=== PATIENT | male | born 1960 | race Caucasian/White ===

== ENCOUNTER 2024-12-06 17:19 | Inpatient (IN) ==
--- NOTE | 2024-12-06 18:22 | Emergency Department Note ---
Impression & Plan Alcohol withdrawal syndrome ED Provider Note NAME: JULISSA TORRES AGE: 64 SEX: M : 1960 ARRIVES VIA: Walk-In INFORMANT: Patient, ED PROVIDER(S): Guerda Lorenzo MD CHIEF COMPLAINT: Detox HPI: This is a 64-year-old male presenting for alcohol withdrawal. Patient states that he had been sober for about 11 years and then restarted drinking over the holidays due to some increasing stress. He notes that over these past 3+ months he has drank about 8 ounces of vodka per day with frequent days where he drinks much more. He notes he finishes a 1.75 L bottle of vodka every 3 to 4 days. He notes that this morning went to a doctor's appointment and were to help with detox. After having not drank for about 3+ hours being having shakes of his hands and increasing anxiety. He did have a seizure at 11 years ago when he went through detox. He was advised to drink alcohol by his physician and present to the ER. ROS: See above HPI for pertinent positives & negatives. A total of 10 systems reviewed and were otherwise negative. PAST MEDICAL HISTORY: See Below PAST SURGICAL HISTORY: See Below FAMILY HISTORY: See Below SOCIAL HISTORY: See Below HOME MEDICATIONS: See Below ALLERGIES: See Below VITALS: See Below PHYSICAL EXAMINATION: General: resting comfortably in no acute distress Head: Normocephalic and atraumatic Eyes: Normal inspection, extraocular muscles intact Ear, nose, throat: Normal external exam Neck: Normal range of motion Respiratory: speaking in full sentences, symmetric chest rise, no respiratory distress Cardiovascular: Regular rate/rhythm Extremities: moves all extremities Neuro: The patient awake and alert, appropriately conversive, symmetric faces, no focal deficits MEDICAL DECISION MAKING: This is a 64-year-old male presenting for alcohol withdrawal. Patient has been she drank immediately prior to arrival at the advice of his outpatient provider. He notes he gets handshaking when he does not drink. He is trying for about 3+ months every day. -No cytosis or anemia. Patient's potassium 3.4. Otherwise alcohol of 28.7. Slight transaminitis likely related to alcohol -Will give Valium 10 mg IV at this time -Will admit for inpatient detox due to patient's previous history and shaking when not drinking Differential diagnosis: Alcohol intoxication, liver cirrhosis, failure alcohol withdrawal Independent History obtained from: [facility] interpreted by me: ECG: None Cardiac Monitoring: An order was placed for continuous cardiac monitoring. The monitor shows a rate of 94 sinus rhythm. Past Med/Surg History Problem List (Updated 12/06/24 @ 19:56 by Guerda Lorenzo MD) Alcohol withdrawal syndrome (Acute) Social History Smoking Status: Heavy tobacco smoker Tobacco Type: Smokeless Tobacco (Dip or Chew) Hx Substance Use: Yes Feels Safe at Home: Yes Allergies Allergies Allergy/AdvReac Type Severity Reaction Status Date / Time Penicillins Allergy Severe MOUTH SORES Verified 12/06/24 18:00 Home Meds Home Medications Medication Instructions Recorded Confirmed acetaminophen 500 mg tablet 1,000 mg PO Q6H PRN Pain 12/06/24 12/06/24 fluoxetine 20 mg capsule 20 mg PO HS 12/06/24 12/06/24 omeprazole 20 mg tablet,delayed 20 mg PO QAM 12/06/24 12/06/24 release Results & Data (ED) Vital Signs Vital Signs - 24 hr 12/06/24 17:19 12/06/24 17:29 12/06/24 17:50 Pulse Rate 104 H Pulse Rate from SpO2 Sensor Respiratory Rate 18 Blood Pressure 158/106 H 186/111 H Blood Pressure Mean 123 121 Pulse Oximetry 95 97 Oxygen Delivery Method Room Air Room Air Sepsis Recent Fever Within 48 Hours No Sepsis New/Unexplained Change in Mental Status No Sepsis Action Taken by Nursing No Action Required 12/06/24 18:00 12/06/24 18:00 12/06/24 18:03 Pulse Rate 90 94 H Pulse Rate from SpO2 Sensor 89 Respiratory Rate 17 Blood Pressure 170/106 H Blood Pressure Mean 127 Pulse Oximetry 96 Oxygen Delivery Method Sepsis Recent Fever Within 48 Hours Sepsis New/Unexplained Change in Mental Status Sepsis Action Taken by Nursing Laboratory Data 12/06/24 18:00 12/06/24 18:00 Lab Results 12/06/24 Range/Units 18:00 WBC 5.33 (4.8-10.8) K/ul RBC 4.51 L (4.70-6.10) M/uL Hgb 14.8 (14.0-18.0) g/dl Hct 41.6 L (42.0-52.0) % MCV 92.2 (80.0-100.0) fL MCH 32.8 (25.0-34.0) pg MCHC 35.6 (32.0-36.0) g/dL RDW Std Deviation 46.4 H (36.4-46.3) fL RDW Coeff of Dwight 13.6 (11.5-14.5) % Plt Count 179 (130-400) K/uL MPV 8.9 L (9.4-12.4) fL Immature Gran % (Auto) 0.6 % Neut % (Auto) 67.4 % Lymph % (Auto) 18.4 % [place] % (Auto) 12.6 % Eos % (Auto) 0.6 % Baso % (Auto) 0.4 % Neut # (Auto) 3.60 (1.40-6.50) K/uL Lymph # (Auto) 0.98 L (1.20-3.40) K/uL [place] # (Auto) 0.67 H (0.11-0.59) K/uL Eos # (Auto) 0.03 (0.00-0.50) K/uL Baso # (Auto) 0.02 (0.00-0.20) K/uL Immature Gran # (Auto) 0.03 (0.01-0.20) K/uL Sodium 139 (136-145) mmol/L Potassium 3.4 L (3.5-5.1) mmol/L Chloride 104 (98-107) mmol/L Carbon Dioxide 25 (21-32) mmol/L Anion Gap 10 (3-11) BUN 13 (6-23) mg/dl Creatinine 0.78 (0.6-1.4) mg/dl Est Cr Clr Drug Dosing 100.3 ml/min eGFR 100.83 BUN/Creatinine Ratio 16.7 (10-20) Glucose 98 (70-99(Fasting)) mg/dl Calcium 9.2 (8.6-10.3) mg/dl Magnesium 1.9 (1.7-2.4) mg/dl Total Bilirubin 0.5 (0.2-1.0) mg/dl Direct Bilirubin 0.1 (0-0.2) mg/dl AST 56 H (13-39) U/L ALT 85 H (7-52) U/L Alkaline Phosphatase 53 (34-104) U/L Total Protein 7.1 (6.0-8.3) gm/dl Albumin 4.5 (3.4-5.0) gm/dl Lipase 12 (11-82) U/L Ethyl Alcohol mg/dL 28.7 H (<10.0) mg/dl Administered Medications Discontinued Medications Clonidine HCl (Clonidine Hcl 0.1 Mg Tab) 0.1 mg PO NOW ONE Stop: 12/06/24 19:27 Last Admin: 12/06/24 19:47 Dose: 0.1 mg Documented By: ZULAY Diazepam (Diazepam 5 Mg/Ml 10ml Vial) 10 mg IV NOW STA Stop: 12/06/24 18:57 Last Admin: 12/06/24 19:04 Dose: 10 mg Documented By: ZULAY Ondansetron HCl (Ondansetron Inj 2 Mg/Ml 2 Ml Vial) 4 mg IV NOW STA Stop: 12/06/24 19:11 Last Admin: 12/06/24 19:25 Dose: 4 mg Documented By: ZULAY Potassium Chloride (Potassium Chloride Crtab 20 Meq Tabcr) 40 meq PO NOW STA Stop: 12/06/24 19:34 Last Admin: 12/06/24 19:46 Dose: 40 meq Documented By: ZULAY Discharge Plan Visit Data Chief Complaint: Detox Request Stated Complaint: ALCOHOL DETOX ED Provider: Guerda Lorenzo Discharge Problem: Alcohol withdrawal syndrome Forms Stand Alone Forms: My [facility], Suicide Prevention Resources Prescriptions Prescriptions: No Action acetaminophen 500 mg Tablet 1,000 mg PO Q6H PRN (Reason: Pain) fluoxetine 20 mg capsule 20 mg PO HS omeprazole 20 mg Tablet,Delayed Release (Dr/Ec) 20 mg PO QAM Referrals Referrals: PCP,NO [Physician] -
[2024-12-06 18:38] LABS: Albumin Level 4.5 gm/dl (3.4-5.0); BUN Creatinine Ratio 16.7 (10-20); Bilirubin Direct 0.1 mg/dl (0-0.2); Bilirubin,Total 0.5 mg/dl (0.2-1.0); Calcium 9.2 mg/dl (8.6-10.3); Creatinine Clr Calc Pharmacy 100.3 ml/min; Magnesium 1.9 mg/dl (1.7-2.4); Potassium 3.4 mmol/L (3.5-5.1); Total Protein 7.1 gm/dl (6.0-8.3)
[2024-12-06] MEDS: diazePAM 5 MG/ML 10ML VIAL IV STA (19:04)
[2024-12-06] MEDS: ONDANSETRON INJ 2 MG/ML 2 ML VIAL IV STA (19:25)
[2024-12-06 19:32] LABS: Basophils # (auto) 0.02 K/uL (0.00-0.20); Basophils % (auto) 0.4 %; Eosinophils # (auto) 0.03 K/uL (0.00-0.50); Eosinophils % (auto) 0.6 %; Hematocrit (blood only) 41.6 % (42.0-52.0); Hemoglobin 14.8 g/dl (14.0-18.0); Immature Granulocytes # (auto) 0.03 K/uL (0.01-0.20); Immature Granulocytes % (auto) 0.6 %; Lymphocytes # (auto) 0.98 K/uL (1.20-3.40); Lymphocytes % (auto) 18.4 %; Mean Corpuscular Hemoglobin 32.8 pg (25.0-34.0); Mean Corpuscular Hgb Conc 35.6 g/dL (32.0-36.0); Mean Corpuscular Volume 92.2 fL (80.0-100.0); Mean Platelet Volume 8.9 fL (9.4-12.4); Monocytes # (auto) 0.67 K/uL (0.11-0.59); Monocytes % (auto) 12.6 %; Neutrophils % (auto) 67.4 %; Platelet Count 179 K/uL (130-400); RDW Coefficient of Variation 13.6 % (11.5-14.5); RDW Standard Deviation 46.4 fL (36.4-46.3); Red Blood Count 4.51 M/uL (4.70-6.10); White Blood Count 5.33 K/ul (4.8-10.8)
[2024-12-06] MEDS: POTASSIUM CHLORIDE CRTAB 20 MEQ TABCR PO STA (19:46)
[2024-12-06] MEDS: cloNIDine HCL 0.1 MG TAB PO ONE (19:47)
--- NOTE | 2024-12-06 19:58 | History & Physical Report ---
Date of Service December 06, 2024 Assessment & Plan (1) Alcohol withdrawal syndrome: (2) HTN (hypertension): (3) Elevated LFTs: (4) Anxiety: Plan: HPI, ROS, FH, SH, PE completed by Antionette Mcbride PA-C Assessment and plan per Dr Goldstein. See addendum History of Present Illness Chief Complaint: alcohol detox Primary Care Provider: Donato Canales MD Patient is 64-year-old male with PMH alcohol abuse, anxiety, presented to ER with c/o alcohol withdrawal and wanting alcohol detox. States history alcoholism. Was abstinent for 11 years and couple months ago started drinking again. History of withdrawal seizure twice in past. Has been drinking 8 ounces vodka daily. Patient states told his BP's have been elevated in the past but states he hasn't follow with PCP for years. He presented to PCP as new patient On 11/29/24 for alcohol use disorder, anxiety. At that time patient preferred attempting outpatient treatment. Librium taper prescribed for alcohol withdrawal, Prozac 20 mg daily prescribed. Last took Librium on 12/03/24. He is drinking approximately 3 ounces daily now. Last drank at around 15:00 today. He states is still feeling shaky and anxious and then will sip on more Vodka. Also having nausea. Patient was referred to [facility] for therapy. He states he was able to get in and was seen there today. Denies hallucinations. He is very concerned about having another withdrawal seizure and presents today in attempts at medical withdrawal. At this time he states is not interested in inpatient rehab. Some intermittent YBARRA's. Denies fever/chills, diaphoresis, vomiting, diarrhea, dizziness, syncope, CP, SOB, cough, rhinorrhea, abdominal pain, extremity weakness, extremity edema, rashes, urinary symptoms. In ER today ETOH: 28. Allergies Allergy/AdvReac Type Severity Reaction Status Date / Time Penicillins Allergy Severe MOUTH SORES Verified 12/06/24 18:00 Home Medications Medication Instructions Recorded Confirmed Type acetaminophen 500 mg tablet 1,000 mg PO Q6H PRN Pain 12/06/24 12/06/24 History fluoxetine 20 mg capsule 20 mg PO HS 12/06/24 12/06/24 History omeprazole 20 mg tablet,delayed 20 mg PO QAM 12/06/24 12/06/24 History release Past Med/Surg History Problem List (Updated 12/06/24 @ 20:54 by Antionette Mcbride PA-C) Elevated LFTs Anxiety HTN (hypertension) Alcohol withdrawal syndrome (Acute) Surgical History No pertinent past surgical history Family History Other FH: alcoholism Social History Smoking Status: Never smoker Tobacco Type: Smokeless Tobacco (Dip or Chew) Do You Dip or Chew Tobacco: Yes; Hx Alcohol Use: Yes Alcohol type: hard liquor Hx Substance Use: No Preferred Language: Dominican Communication Ability: Effective Beauty Artist Required: No Beliefs That Will Affect Care: None Current Living Situation: Alone Feels Safe at Home: Yes Assistive Devices: None Review of Systems Review of Systems: All systems reviewed & are unremarkable except as noted in HPI & below Physical Exam Physical Exam: General: +mildly anxious appearing, WDWN Head: normocephalic, atraumatic Eyes: conjunctiva non-injected, anicteric ENT: normal inspection external ears, nose, mucous membranes moist Neck: supple, trachea midline Lungs: clear, no respiratory distress, no wheezing/rhonchi/rales CV: RRR, no murmur, no pretibial edema Abd: normal BS, soft, non-tender Ext: no cyanosis, no calf tenderness Neuro: A&O x 3, +tremors hands bilaterally, otherwise no focal deficits noted, normal affect Skin: warm, dry Results & Data Results & Data Vital Signs (Past 12 Hours) Vital Signs Pulse Resp BP Pulse Ox O2 Del Method 12/06/24 18:03 94 H 12/06/24 18:00 170/106 H 12/06/24 18:00 90 17 96 12/06/24 17:50 186/111 H 12/06/24 17:29 104 H 18 158/106 H 97 Room Air 12/06/24 17:19 95 Room Air Laboratory Results Short CBC 12/06/24 Range/Units 18:00 WBC 5.33 (4.8-10.8) K/ul Hgb 14.8 (14.0-18.0) g/dl Hct 41.6 L (42.0-52.0) % Plt Count 179 (130-400) K/uL BMP 12/06/24 18:00 Sodium 139 Potassium 3.4 L Chloride 104 Carbon Dioxide 25 BUN 13 Creatinine 0.78 Glucose 98 Calcium 9.2 Liver Function 12/06/24 Range/Units 18:00 Total Bilirubin 0.5 (0.2-1.0) mg/dl Direct Bilirubin 0.1 (0-0.2) mg/dl AST 56 H (13-39) U/L ALT 85 H (7-52) U/L Alkaline Phosphatase 53 (34-104) U/L Albumin 4.5 (3.4-5.0) gm/dl Supervising Physician Co-Signing Physician Notes IM ATTENDING : Patient seen and examined. History obtained from patient and records. Concur with salient points upon review of preceding documentation by Ms. Antionette Mcbride PA-C. I take responsibility for plan of care below. FINAL ASSESSMENT AND PLAN as follows : Alcohol withdrawal History seizure disorder off medications as per patient preference Hypertensive urgency secondary to illness Alcoholic hepatitis, likely good prognosis on Maddrey's DF score given normal coags Anxiety disorder Ongoing tobacco abuse Admit to PCU KATY S, DT precautions Clonidine as needed SBP greater than 150 Nicotine patch DVT prophylaxis Lovenox subcu Full code I spent a total of 35 minutes coordinating, documenting, and providing care for this patientexcludingtime spent by another provider/QHP.
[2024-12-06 20:13] LABS: Prothrombin Time 10.5 Seconds (9.0-12.0)
[2024-12-06] MEDS: THIAMINE HCL 100 MG in SYRINGE 9 ML IV STA (20:13)
[2024-12-06] MEDS ORDERED: Ativan IV Alcohol Withdrawal--Active Protocol IV PRN (20:27)
[2024-12-06] MEDS ORDERED: chlordiazePOXIDE ALCOHOL WITHDRAWL 25MG PO STA (20:27)
[2024-12-06] MEDS ORDERED: LORazepam 2 MG/1 ML VIAL IV PRN ×3 (20:27→20:29)
[2024-12-06] MEDS ORDERED: PROMETHAZINE 6.25 MG/50.25 ML BAG IV PRN (20:29)
[2024-12-06] MEDS ORDERED: oxyCODONE HCL IR 5 MG TAB (IMMEDIATE RELEASE) PO PRN (20:29)
[2024-12-06] MEDS: OPTIRAY 320 100ml IV ONE (21:26)
[2024-12-06] MEDS: NICOTINE 7 MG/24 HR TDSY TD SCH (22:52)
[2024-12-06] MEDS: FLUoxetine HCL 20 MG CAP PO SCH (22:54)
--- NOTE | 2024-12-06 23:34 | CT Scan Report ---
Exam(s): CT ABDOMEN + PELVIS With Contrast IV Amt: 90 ml optiray 320 EXAM: CT Abdomen and Pelvis With Intravenous Contrast CLINICAL HISTORY: Reason for exam: abd pain. TECHNIQUE: Axial computed tomography images of the abdomen and pelvis with intravenous contrast. CTDI is 23.29 mGy and DLP is 1183.19 mGy-cm. Automated exposure control was utilized for the study. A dose lowering technique was utilized adhering to the principles of ALARA. CONTRAST: Patient received 90 ml optiray 320 of IV contrast COMPARISON: No relevant prior studies available. FINDINGS: Lung bases: No consolidation. The heart contains coronary artery calcifications. ABDOMEN: Liver: The liver is enlarged and of diffuse decreased attenuation.. Gallbladder and bile ducts: No calcified stones. No ductal dilation. Pancreas: No mass. No ductal dilation. Spleen: No splenomegaly. Adrenals: No mass. Kidneys and ureters: No solid mass. No hydronephrosis. Stomach and bowel: The stomach is relatively decompressed. There is air and stool noted in the colon. There are diverticula present on the colon. No significant inflammatory changes are seen. PELVIS: Appendix: Unremarkable CT scan appearance noted the appendix.. Bladder: No calculi are noted within the bladder.. Reproductive: Unremarkable as visualized. ABDOMEN and PELVIS: Intraperitoneal space: No free air. No significant fluid collection. Bones/joints: There are degenerative changes in the spine.. Soft tissues: There is a left inguinal hernia containing fat. There is an umbilical hernia containing fat.. Vasculature: No abdominal aortic aneurysm. Lymph nodes: No enlarged lymph nodes. IMPRESSION: Diverticulosis. The liver is enlarged and of diffuse decreased attenuation which may be due to fatty infiltration. Electronically signed by: Jose Patricia MD 12/06/24 23:32 PM
[2024-12-07] MEDS: chlordiazePOXIDE HCl 25 MG CAP PO SCH ×2 (00:33→23:25)
[2024-12-07 07:46] LABS: Basophils # (auto) 0.03 K/uL (0.00-0.20); Basophils % (auto) 0.6 %; Eosinophils # (auto) 0.07 K/uL (0.00-0.50); Eosinophils % (auto) 1.4 %; Hematocrit (blood only) 39.7 % (42.0-52.0); Hemoglobin 13.8 g/dl (14.0-18.0); Immature Granulocytes # (auto) 0.02 K/uL (0.01-0.20); Immature Granulocytes % (auto) 0.4 %; Lymphocytes # (auto) 1.12 K/uL (1.20-3.40); Lymphocytes % (auto) 21.9 %; Mean Corpuscular Hemoglobin 33.4 pg (25.0-34.0); Mean Corpuscular Hgb Conc 34.8 g/dL (32.0-36.0); Mean Corpuscular Volume 96.1 fL (80.0-100.0); Monocytes # (auto) 0.76 K/uL (0.11-0.59); Monocytes % (auto) 14.9 %; Neutrophils # (auto) 3.11 K/uL (1.40-6.50); Neutrophils % (auto) 60.8 %; Platelet Count 152 K/uL (130-400); RDW Coefficient of Variation 13.9 % (11.5-14.5); RDW Standard Deviation 49.7 fL (36.4-46.3); Red Blood Count 4.13 M/uL (4.70-6.10); White Blood Count 5.11 K/ul (4.8-10.8)
[2024-12-07 08:00] LABS: Albumin Globulin Ratio 1.7 (0.9-2); Albumin Level 3.9 gm/dl (3.4-5.0); BUN Creatinine Ratio 14.8 (10-20); Bilirubin,Total 0.9 mg/dl (0.2-1.0); Calcium 8.7 mg/dl (8.6-10.3); Creatinine Clr Calc Pharmacy 88.7 ml/min; Globulin 2.3 gm/dl (2.5-4.0); Potassium 3.4 mmol/L (3.5-5.1); Total Protein 6.2 gm/dl (6.0-8.3)
[2024-12-07] MEDS: MULTIVITAMIN TAB PO SCH (08:14)
[2024-12-07] MEDS: PANTOprazole 40 MG TAB PO SCH (08:14)
[2024-12-07] MEDS: THIAMINE HCL 100 MG TAB PO SCH (08:14)
[2024-12-07] MEDS: FOLIC ACID 1 MG TAB PO SCH (08:14)
[2024-12-07] MEDS: ENOXAPARIN INJ 40 MG/0.4 ML SYR SQ SCH (08:14)
[2024-12-07] MEDS: POTASSIUM CHLORIDE CRTAB 20 MEQ TABCR PO STA (10:49)
--- NOTE | 2024-12-07 12:11 | Hospitalist Progress Note ---
Date of Service December 07, 2024 Assessment & Plan (1) Alcohol withdrawal syndrome: (2) Anxiety: (3) Elevated LFTs: (4) Hypokalemia: Plan Fredo Vasques is a 64 year old male with PMH significant for alcohol abuse, anxiety, and history of alcohol withdrawal seizures. He presented to the ED yesterday for medical alcohol detoxification. He had been abstinent of alcohol use for the last 11 years until he started drinking again in August. He states he started drinking again due to loneliness around the holidays and had multiple life stressors including recently moving, changing jobs, family members with alcohol use disorder, and of a close family member. His last drink was 12/06/24 at 1500. He presented to the ED with an ETO2 level of 28. He was given IV diazepam, IV thiamine, and PO clonidine. He was started on PO chlordiazepoxide. 1. Alcohol withdrawal syndrome Acute, stable. Continue PO chlordiazepoxide taper. Continue PO thiamine, folic acid, multivitamin. Monitor AWSS scores. PRN Ativan per AWSS scores. Seizure precautions given history of alcohol withdrawal seizures in the past with detox. 2. Anxiety Chronic, stable. Is anxious about history of seizures with alcohol withdrawal. Continue fluoxetine. 3. Elevated LFTs AST 42 and ALT 69 this AM. Monitor CMP qAM. 4. Hypokalemia K 3.4 this AM. KCl 40meq PO given. Monitor CMP qAM. DVT Prophylaxis: on subQ lovenox Code Status: FULL CODE - As per discussion at bedside with the patient. PCP: Dr. Donato Canales MD Disposition: Not yet medically ready for discharge. Patient does not desire inpatient rehab. Will look into outpatient rehab options with case management. Patient seen in collaboration with Dr. Chase. Please see addendum. I spent a total of 50 minutes coordinating, documenting, and providing care for this patient excluding time spent in the performance of separately billed services or time spent by another provider/QHP. This included personally reviewing all current laboratories and imaging studies, medical reconciliation, outpatient chart review and discussion with specialists. Admission and Anticipated Discharge Date Admission Date: December 06, 2024 Supervising Physician Co-Signing Physician Notes Patient seen and examined Counseled patient regarding alcohol use Continue CIWA protocol Agree with plans as detailed by Lucie JI Subjective Patient is doing well this morning. He denies pain, anxiety, tremors, palpitations, diaphoresis, visual disturbances, hallucinations, SOB, abdominal pain. He reports nausea and one loose bowel movement. He is eating and drinking well. Review of Systems Review of Systems: All systems reviewed & are unremarkable except as noted in HPI & below Physical Exam Physical Exam: VITALS: Reviewed and VSS. GEN: Healthy appearing, well-developed, NAD. PSYCH: Good Judgment. AOx3. Normal memory, mood, and affect. CV: RRR, no m/r/g. LUNGS: CTAB, no w/r/c. ABD: Soft, NT/ND, NBS, no masses or organomegaly. SKIN: Warm, well perfused. No skin rashes or abnormal lesions. EXT: No clubbing, cyanosis, or edema. NEURO: Ambulating with no limitations. Normal muscle strength and tone. No focal deficits. Results & Data Results & Data Vital Signs (Past 12 Hours) Vital Signs Temp Pulse Pulse Resp BP BP Pulse Ox 12/07/24 10:39 36.4 C L 82 17 112/76 95 12/07/24 07:48 67 12/07/24 07:31 36.3 C L 72 17 122/81 97 12/07/24 03:37 36.4 C L 66 16 125/80 96 O2 Del Method 12/07/24 10:39 Room Air 12/07/24 07:48 12/07/24 07:31 Room Air 12/07/24 03:37 Room Air Laboratory Results Short CBC 12/06/24 12/07/24 Range/Units 18:00 06:23 WBC 5.33 5.11 (4.8-10.8) K/ul Hgb 14.8 13.8 L (14.0-18.0) g/dl Hct 41.6 L 39.7 L (42.0-52.0) % Plt Count 179 152 (130-400) K/uL BMP 12/06/24 12/07/24 18:00 06:23 Sodium 139 138 Potassium 3.4 L 3.4 L Chloride 104 104 Carbon Dioxide 25 30 BUN 13 13 Creatinine 0.78 0.88 Glucose 98 116 H Calcium 9.2 8.7 Liver Function 12/06/24 12/07/24 Range/Units 18:00 06:23 Total Bilirubin 0.5 0.9 (0.2-1.0) mg/dl Direct Bilirubin 0.1 (0-0.2) mg/dl AST 56 H 42 H (13-39) U/L ALT 85 H 69 H (7-52) U/L Alkaline Phosphatase 53 42 (34-104) U/L Albumin 4.5 3.9 (3.4-5.0) gm/dl I independently and personally reviewed and interpreted CBC and CMP. Medications Administered Current Inpatient Medications Acetaminophen (Acetaminophen 500 Mg Tab) 500 mg PO Q6H PRN PRN Reason: fever/pain Stop: 01/05/25 20:28 Chlordiazepoxide HCl (Chlordiazepoxide Hcl 25 Mg Cap) 25 mg PO Q8H [facility] Stop: 12/08/24 16:01 Chlordiazepoxide HCl (Chlordiazepoxide Hcl 25 Mg Cap) 25 mg PO Q6H [facility]DA[facility] Stop: 12/07/24 18:01 Last Admin: 12/07/24 10:49 Dose: 25 mg Chlordiazepoxide HCl (Chlordiazepoxide Hcl 10 Mg Cap) 10 mg PO Q8H [facility]DAIR Stop: 12/09/24 16:01 Chlordiazepoxide HCl (Chlordiazepoxide Hcl 5 Mg Cap) 5 mg PO Q12H [facility]DA[facility] Stop: 12/10/24 18:01 Enoxaparin Sodium (Enoxaparin Inj 40 Mg/0.4 Ml Syr) 40 mg SQ QAM [facility]DA[facility] Stop: 01/06/25 08:59 Last Admin: 12/07/24 08:14 Dose: 40 mg Fluoxetine HCl (Fluoxetine Hcl 20 Mg Cap) 20 mg PO HS [facility] Stop: 01/05/25 20:59 Last Admin: 12/06/24 22:54 Dose: 20 mg Folic Acid (Folic Acid 1 Mg Tab) 1 mg PO QAM [facility]DAIR Stop: 01/06/25 08:59 Last Admin: 12/07/24 08:14 Dose: 1 mg Promethazine HCl (Phenergan) 6.25 mg in 50.25 mls @ 201 mls/hr IV Q6H PRN PRN Reason: Nausea And Vomiting Stop: 01/05/25 20:28 Lorazepam (Lorazepam 2 Mg/1 Ml Vial) 1 mg IV UD PRN; Protocol PRN Reason: EtOH Withdrawal AWSS Score 6,7 Stop: 01/05/25 20:26 Lorazepam (Lorazepam 2 Mg/1 Ml Vial) 2 mg IV UD PRN; Protocol PRN Reason: EtOH Withdrawal AWSS Score 8,9 Stop: 01/05/25 20:26 Lorazepam (Lorazepam 2 Mg/1 Ml Vial) 3 mg IV ONCE PRN; Protocol PRN Reason: EtOH Withdrawal AWSS Score 10+ Lorazepam (Lorazepam 2 Mg/1 Ml Vial) 1 mg IV Q10M PRN PRN Reason: seizures Stop: 01/05/25 20:28 Miscellaneous (Remove Nicoderm Patch) 1 each N/A DAILY@2058 [facility] Stop: 01/06/25 20:58 Multivitamins (Multivitamin Tab) 1 tab PO QAM [facility] Stop: 01/06/25 08:59 Last Admin: 12/07/24 08:14 Dose: 1 tab Nicotine (Nicotine 7 Mg/24 Hr Tdsy) 1 patch TD HS [facility] Stop: 01/05/25 21:09 Last Admin: 12/06/24 22:52 Dose: 1 patch Oxycodone HCl (Oxycodone Hcl Ir 5 Mg Tab (Immediate Release)) 5 mg PO Q4H PRN PRN Reason: Pain Stop: 12/20/24 20:28 Pantoprazole Sodium (Pantoprazole 40 Mg Tab) [facility] Stop: 01/06/25 08:59 Last Admin: 12/07/24 08:14 Dose: 40 mg Thiamine HCl (Thiamine Hcl 100 Mg Tab) 100 mg PO QAM [facility] Stop: 01/06/25 08:59 Last Admin: 12/07/24 08:14 Dose: 100 mg
[2024-12-07] MEDS: MELATONIN 3 MG TAB PO PRN (23:24)
--- NOTE | 2024-12-08 06:05 | Electrocardiogram Report ---
Test Reason : Blood Pressure : */* mmHG Vent. Rate : 79 BPM Atrial Rate : 79 BPM P-R Int : 176 ms QRS Dur : 90 ms QT Int : 394 ms P-R-T Axes : 47 65 33 degrees QTcB Int : 451 ms Normal sinus rhythm Possible Anterior infarct , age undetermined Abnormal ECG No previous ECGs available Confirmed by Bin Saucedo ([id number]) on 12/08/2024 6:05:14 AM Referred By: REFERRED SELF Confirmed By: Bin Saucedo
[2024-12-08] MEDS: ACETAMINOPHEN 500 MG TAB PO PRN (06:37)
[2024-12-08 07:53] LABS: Albumin Globulin Ratio 1.7 (0.9-2); Albumin Level 3.8 gm/dl (3.4-5.0); Bilirubin,Total 0.7 mg/dl (0.2-1.0); Calcium 8.5 mg/dl (8.6-10.3); Globulin 2.2 gm/dl (2.5-4.0); Phosphorus 2.9 mg/dl (2.5-4.9); Potassium 3.8 mmol/L (3.5-5.1)
--- NOTE | 2024-12-08 09:56 | Hospitalist Progress Note ---
Date of Service December 08, 2024 Assessment & Plan (1) Alcohol withdrawal syndrome: (2) Anxiety: (3) Elevated LFTs: (4) Hypokalemia: Plan Fredo Vasques is a 64 year old male with PMH significant for alcohol abuse, anxiety, and history of alcohol withdrawal seizures. He presented to the ED yesterday for medical alcohol detoxification. He had been abstinent of alcohol use for the last 11 years until he started drinking again in August. He states he started drinking again due to loneliness around the holidays and had multiple life stressors including recently moving, changing jobs, family members with alcohol use disorder, and of a close family member. His last drink was 12/06/24 at 1500. He presented to the ED with an ETO2 level of 28. He was given IV diazepam, IV thiamine, and PO clonidine. He was started on PO chlordiazepoxide. 1. Alcohol withdrawal syndrome Acute, stable. Continue PO chlordiazepoxide taper. Continue PO thiamine, folic acid, multivitamin. Monitor CIWA scores. PRN Ativan per CIWA scores. Seizure precautions given history of alcohol withdrawal seizures in the past with detox. 2. Anxiety Chronic, stable. Continue fluoxetine. 3. Elevated LFTs AST 43 and ALT 64 this AM. Monitor CMP qAM. 4. Hypokalemia K 3.8 this AM. KCl repletion last given 12/07. Monitor CMP qAM. DVT Prophylaxis: on subQ lovenox Code Status: FULL CODE - As per discussion at bedside with the patient. PCP: Dr. Donato Canales MD Disposition: Not yet medically ready for discharge. Patient does not desire inpatient rehab. Will look into outpatient rehab options with case management. Patient seen in collaboration with Dr. Chase. Please see addendum. I spent a total of 50 minutes coordinating, documenting, and providing care for this patient excluding time spent in the performance of separately billed services or time spent by another provider/QHP. This included personally reviewing all current laboratories and imaging studies, medical reconciliation, outpatient chart review and discussion with specialists. Admission and Anticipated Discharge Date Admission Date: December 06, 2024 Supervising Physician Co-Signing Physician Notes Patient seen and examined Agree with findings and plans as detailed by Lucie JI Mili Yoo is doing well this morning. He denies pain, anxiety, tremors, palpitations, diaphoresis, visual disturbances, hallucinations, chest pain, SOB, abdominal pain. He is eating and drinking well. He had a bowel movement this morning. Review of Systems Review of Systems: All systems reviewed & are unremarkable except as noted in HPI & below Physical Exam Physical Exam: VITALS: Reviewed and VSS. GEN: Healthy appearing, well-developed, NAD. PSYCH: Good Judgment. AOx3. Normal memory, mood, and affect. CIWA score 1. CV: RRR, no m/r/g. LUNGS: CTAB, no w/r/c. ABD: Soft, NT/ND, NBS, no masses or organomegaly. SKIN: Warm, well perfused. No skin rashes or abnormal lesions. EXT: No clubbing, cyanosis, or edema. NEURO: Ambulating with no limitations. Normal muscle strength and tone. No focal deficits. Results & Data Results & Data Vital Signs (Past 12 Hours) Vital Signs Temp Pulse Pulse Resp BP BP Pulse Ox 12/08/24 07:59 37.4 C 69 18 123/81 97 12/08/24 07:20 62 12/08/24 04:27 36.4 C L 69 18 122/79 96 12/08/24 02:49 65 12/07/24 23:53 36.3 C L 67 18 108/70 96 O2 Del Method 12/08/24 07:59 Room Air 12/08/24 07:20 12/08/24 04:27 Room Air 12/08/24 02:49 12/07/24 23:53 Room Air Laboratory Results [facility] 12/08/24 06:52 Sodium 139 Potassium 3.8 Chloride 105 Carbon Dioxide 30 BUN 15 Creatinine 1.00 Glucose 115 H Calcium 8.5 L Liver Function 12/08/24 Range/Units 06:52 Total Bilirubin 0.7 (0.2-1.0) mg/dl AST 43 H (13-39) U/L ALT 64 H (7-52) U/L Alkaline Phosphatase 41 (34-104) U/L Albumin 3.8 (3.4-5.0) gm/dl I have independently reviewed and interpreted patient's labs including CBC, CMP, magnesium, and phosphorus. Medications Administered Current Inpatient Medications Acetaminophen (Acetaminophen 500 Mg Tab) 500 mg PO Q6H PRN PRN Reason: fever/pain Stop: 01/05/25 20:28 Last Admin: 12/08/24 06:37 Dose: 500 mg Chlordiazepoxide HCl (Chlordiazepoxide Hcl 25 Mg Cap) 25 mg PO Q8H [facility] Stop: 12/08/24 16:01 Last Admin: 12/08/24 08:13 Dose: 25 mg Chlordiazepoxide HCl (Chlordiazepoxide Hcl 10 Mg Cap) 10 mg PO Q8H [facility] Stop: 12/09/24 16:01 Chlordiazepoxide HCl (Chlordiazepoxide Hcl 5 Mg Cap) 5 mg PO Q12H [facility] Stop: 12/10/24 18:01 Enoxaparin Sodium (Enoxaparin Inj 40 Mg/0.4 Ml Syr) 40 mg SQ QAM [facility] Stop: 01/06/25 08:59 Last Admin: 12/08/24 08:13 Dose: 40 mg Fluoxetine HCl (Fluoxetine Hcl 20 Mg Cap) 20 mg PO HS [facility] Stop: 01/05/25 20:59 Last Admin: 12/07/24 20:51 Dose: 20 mg Folic Acid (Folic Acid 1 Mg Tab) 1 mg PO QAM [facility] Stop: 01/06/25 08:59 Last Admin: 12/08/24 08:13 Dose: 1 mg Promethazine HCl (Phenergan) 6.25 mg in 50.25 mls @ 201 mls/hr IV Q6H PRN PRN Reason: Nausea And Vomiting Stop: 01/05/25 20:28 Lorazepam (Lorazepam 2 Mg/1 Ml Vial) 1 mg IV UD PRN; Protocol PRN Reason: EtOH Withdrawal AWSS Score 6,7 Stop: 01/05/25 20:26 Lorazepam (Lorazepam 2 Mg/1 Ml Vial) 2 mg IV UD PRN; Protocol PRN Reason: EtOH Withdrawal AWSS Score 8,9 Stop: 01/05/25 20:26 Lorazepam (Lorazepam 2 Mg/1 Ml Vial) 3 mg IV ONCE PRN; Protocol PRN Reason: EtOH Withdrawal AWSS Score 10+ Lorazepam (Lorazepam 2 Mg/1 Ml Vial) 1 mg IV Q10M PRN PRN Reason: seizures Stop: 01/05/25 20:28 Melatonin (Melatonin 3 Mg Tab) 3 mg PO HS PRN PRN Reason: Sleep Stop: 01/06/25 21:07 Last Admin: 12/07/24 23:24 Dose: 3 mg Miscellaneous (Remove Nicoderm Patch) 1 each N/A DAILY@2058 [facility] Stop: 01/06/25 20:58 Last Admin: 12/07/24 20:51 Dose: 1 each Multivitamins (Multivitamin Tab) 1 tab PO QAM [facility] Stop: 01/06/25 08:59 Last Admin: 12/08/24 08:13 Dose: 1 tab Nicotine (Nicotine 7 Mg/24 Hr Tdsy) 1 patch TD HS [facility] Stop: 01/05/25 21:09 Last Admin: 12/07/24 20:50 Dose: 1 patch Oxycodone HCl (Oxycodone Hcl Ir 5 Mg Tab (Immediate Release)) 5 mg PO Q4H PRN PRN Reason: Pain Stop: 12/20/24 20:28 Pantoprazole Sodium (Pantoprazole 40 Mg Tab) 40 mg PO QAM [facility] Stop: 01/06/25 08:59 Last Admin: 12/08/24 08:13 Dose: 40 mg Thiamine HCl (Thiamine Hcl 100 Mg Tab) 100 mg PO QAM [facility] Stop: 01/06/25 08:59 Last Admin: 12/08/24 08:13 Dose: 100 mg (1) Alcohol withdrawal syndrome Complication of substance-induced condition: uncomplicated Qualified Code(s): F10.930 - Alcohol use, unspecified with withdrawal, uncomplicated
[2024-12-08] MEDS: LORazepam 2 MG/1 ML VIAL IV PRN (23:00)
[2024-12-09 07:21] LABS: Albumin Globulin Ratio 1.7 (0.9-2); Albumin Level 3.7 gm/dl (3.4-5.0); BUN Creatinine Ratio 16.7 (10-20); Bilirubin,Total 0.5 mg/dl (0.2-1.0); Calcium 8.5 mg/dl (8.6-10.3); Creatinine Clr Calc Pharmacy 82.4 ml/min; Globulin 2.2 gm/dl (2.5-4.0); Magnesium 2.1 mg/dl (1.7-2.4); Phosphorus 3.2 mg/dl (2.5-4.9); Potassium 3.8 mmol/L (3.5-5.1); Total Protein 5.9 gm/dl (6.0-8.3)
[2024-12-09 08:14] VITALS: RESP 18
[2024-12-09 11:07] VITALS: PULSE 66; TEMP 98.1; O2SAT 96
--- NOTE | 2024-12-09 12:44 | Discharge Summary ---
Discharge Summary Date of Service December 09, 2024 Principal Dx & Hospital Course #1 = Principal Diagnosis (1) Alcohol withdrawal syndrome: (2) Anxiety: (3) Elevated LFTs: (4) Hypokalemia: Plan Fredo Vasques is a 64 year old male with PMH significant for alcohol abuse, anxiety, and history of alcohol withdrawal seizures. He presented to the ED yesterday for medical alcohol detoxification. He had been abstinent of alcohol use for the last 11 years until he started drinking again in August. He states he started drinking again due to loneliness around the holidays and had multiple life stressors including recently moving, changing jobs, family members with alcohol use disorder, and of a close family member. His last drink was 12/06/24 at 1500. He presented to the ED with an ETO2 level of 28. He was given IV diazepam, IV thiamine, and PO clonidine. He was started on PO chlordiazepoxide. 1. Alcohol withdrawal syndrome Longstanding alcohol use. Withdrawal managed with chlordiazepoxide. Vitals stable today and ready for discharge. Continue PO thiamine, folic acid, multivitamin daily. 2. Anxiety Expressed concern for increased anxiety once out of the hospital. Encouraged to discuss with PCP or [facility]. Continue current fluoxetine dose. 3. Elevated LFTs AST 57 and ALT 75 this AM. Elevated likely due to alcohol use. Recommend PCP follow up on liver enzymes. 4. Hypokalemia Resolved. KCl repletion last given 12/07. Potassium at time of discharge 3.8. Patient seen in collaboration with Dr. Chase. Please see addendum. Notes For Next Care Provider Fredo was treated for alcohol withdrawal as above. Recommend discussion about anxiety and SSRI dosage. Recommend follow up liver enzymes due to elevated enzymes in the hospital. Medication Changes From Visit Continue thiamine and folic acid daily. Admission HPI Per Admitting Provider Patient is 64-year-old male with PMH alcohol abuse, anxiety, presented to ER with c/o alcohol withdrawal and wanting alcohol detox. States history alcoholism. Was abstinent for 11 years and couple months ago started drinking again. History of withdrawal seizure twice in past. Has been drinking 8 ounces vodka daily. Patient states told his BP's have been elevated in the past but states he hasn't follow with PCP for years. He presented to PCP as new patient On 11/29/24 for alcohol use disorder, anxiety. At that time patient preferred attempting outpatient treatment. Librium taper prescribed for alcohol withdrawal, Prozac 20 mg daily prescribed. Last took Librium on 12/03/24. He is drinking approximately 3 ounces daily now. Last drank at around 15:00 today. He states is still feeling shaky and anxious and then will sip on more Vodka. Also having nausea. Patient was referred to [place] for therapy. He states he was able to get in and was seen there today. Denies hallucinations. He is very concerned about having another withdrawal seizure and presents today in attempts at medical withdrawal. At this time he states is not interested in inpatient rehab. Some intermittent YBARRA's. Denies fever/chills, diaphoresis, vomiting, diarrhea, dizziness, syncope, CP, SOB, cough, rhinorrhea, abdominal pain, extremity weakness, extremity edema, rashes, urinary symptoms. In ER today ETOH: 28. Admission Exam Per Admitting Provider General: +mildly anxious appearing, WDWN Head: normocephalic, atraumatic Eyes: conjunctiva non-injected, anicteric ENT: normal inspection external ears, nose, mucous membranes moist Neck: supple, trachea midline Lungs: clear, no respiratory distress, no wheezing/rhonchi/rales CV: RRR, no murmur, no pretibial edema Abd: normal BS, soft, non-tender Ext: no cyanosis, no calf tenderness Neuro: A&O x 3, +tremors hands bilaterally, otherwise no focal deficits noted, normal affect Skin: warm, dry Discharge Exam VITALS: Reviewed and VSS. GEN: Healthy appearing, well-developed male, NAD. PSYCH: Good Judgment. AOx3. Normal memory, mood, and affect. CIWA score 1. CV: RRR, no m/r/g. LUNGS: CTAB, no w/r/c. ABD: Soft, NT/ND, NBS, no masses or organomegaly. SKIN: Warm, well perfused. No skin rashes or abnormal lesions. EXT: No clubbing, cyanosis, or edema. NEURO: Ambulating with no limitations. Normal muscle strength and tone. No focal deficits. Updated Medication List Medication Instructions Recorded Confirmed Type acetaminophen 500 mg tablet 1,000 mg PO Q6H PRN Pain 12/06/24 12/06/24 History fluoxetine 20 mg capsule 20 mg PO HS 12/06/24 12/06/24 History omeprazole 20 mg tablet,delayed 20 mg PO QAM 12/06/24 12/06/24 History release folic acid 1 mg tablet 1 mg PO QAM #30 tabs 12/09/24 Rx thiamine HCl (vitamin B1) 100 mg 100 mg PO QAM #30 tabs 12/09/24 Rx tablet Hospital Stay Data Consultations 12/06/24 19:22 ED Decision to Admit Stat Diagnostic Imagining Performed Abdomen/Pelvis CT 12/06/24 21:06 Exam(s): CT ABDOMEN + PELVIS With Contrast IV Amt: 90 ml optiray 320 EXAM: CT Abdomen and Pelvis With Intravenous Contrast CLINICAL HISTORY: Reason for exam: abd pain. TECHNIQUE: Axial computed tomography images of the abdomen and pelvis with intravenous contrast. CTDI is 23.29 mGy and DLP is 1183.19 mGy-cm. Automated exposure control was utilized for the study. A dose lowering technique was utilized adhering to the principles of ALARA. CONTRAST: Patient received 90 ml optiray 320 of IV contrast COMPARISON: No relevant prior studies available. FINDINGS: Lung bases: No consolidation. The heart contains coronary artery calcifications. ABDOMEN: Liver: The liver is enlarged and of diffuse decreased attenuation.. Gallbladder and bile ducts: No calcified stones. No ductal dilation. Pancreas: No mass. No ductal dilation. Spleen: No splenomegaly. Adrenals: No mass. Kidneys and ureters: No solid mass. No hydronephrosis. Stomach and bowel: The stomach is relatively decompressed. There is air and stool noted in the colon. There are diverticula present on the colon. No significant inflammatory changes are seen. PELVIS: Appendix: Unremarkable CT scan appearance noted the appendix.. Bladder: No calculi are noted within the bladder.. Reproductive: Unremarkable as visualized. ABDOMEN and PELVIS: Intraperitoneal space: No free air. No significant fluid collection. Bones/joints: There are degenerative changes in the spine.. Soft tissues: There is a left inguinal hernia containing fat. There is an umbilical hernia containing fat.. Vasculature: No abdominal aortic aneurysm. Lymph nodes: No enlarged lymph nodes. IMPRESSION: Diverticulosis. The liver is enlarged and of diffuse decreased attenuation which may be due to fatty infiltration. Electronically signed by: Jose Patricia MD 12/06/24 23:32 PM Pending Results Patient Have Any Pending Studies at Discharge: No Discharge Instructions Given to Patient (Per Discharging Provider) You were admitted to the hospital for medical alcohol detoxification. While in the hospital, we monitored your alcohol withdrawal assessment scores and you were given Librum in a tapered fashion. At the time of discharge, your alcohol withdrawal assessment score was 1 and you were comfortable with going home. MEDICATION CHANGES: Please continue thiamine and folic acid daily. SUMMARY OF TEST RESULTS: None PENDING TEST RESULTS: None RECOMMENDATIONS FOR FOLLOW-UP: We recommend following up with your PCP and [facility] as scheduled. We recommend attending AA meetings to help with your recovery. Please continue taking home medications as prescribed. Recommend discussing ongoing anxiety with PCP or [facility]. Your liver enzymes were elevated likely due to alcohol use. Recommend PCP follows up within the next month. OTHER INSTRUCTIONS: Seek medical attention if you have: * temperature above 101 * chest pain or trouble breathing * abdominal pain, nausea, vomiting * diarrhea, dark stools or bloody stools * any unanswered questions or concerns Call 911 if symptoms are severe. It has been a pleasure taking care of you. Please take care of yourself. If you have any questions regarding your recent hospitalization please contact [facility] and request any [place] @ [phone]. Total Time Total Time Spent Total Time Spent (In Minutes): I spent a total of 40 minutes coordinating, documenting and providing care for this patient excluding time spent in the performance of separately billed services or time spent by another provider/QHP. Supervising Physician Co-Signing Physician Notes Patient seen and examined Agree with findings and plans as detailed by Lucie JI
[2024-12-09 12:45] VITALS: BP 109/74
[2024-12-10] MEDS ORDERED: chlordiazePOXIDE HCl 5 MG CAP PO SCH (06:00)
== END 2024-12-09 14:28 | disposition home or self-care (01) | DRG 897 ==
LOC: ED 17:19 → 2S 20:27
DX: F10.139 Alcohol abuse with withdrawal, unspecified; Y90.1 Blood alcohol level of 20-39 mg/100 ml; F17.290 Nicotine dependence, other tobacco product, uncomplicated; Z88.0 Allergy status to penicillin; E87.6 Hypokalemia; F41.9 Anxiety disorder, unspecified; Z79.899 Other long term (current) drug therapy